=== PATIENT | female | born 1965 | race African-American/Black ===

== ENCOUNTER 2021-06-07 23:21 | Emergency (ER) | payer MEDICAID, SELFPAY ==
[2021-06-07 23:22] VITALS: BP 109/92; PULSE 85; RESP 18; TEMP 36.1; O2SAT 95; BMI 29.5
--- NOTE | 2021-06-07 23:29 | EDS_ITS ---
HPI HPI - Psych History of Present Illness Chief Complaint: Mental Health Informant: patient, EMS and SNF Narrative Narrative: 55-year-old female history of schizophrenia current residing at [facility] is brought to the emergency department tonight with several days history of violence towards nursing staff and peers. Reportedly they have been maxing out her as needed orders and have increased some. The patient was seen earlier tonight at another hospital and discharged. Arriving back at her nursing facility the patient reportedly became violent again. Patient does not know how she got a cut on her lip. [facility] Medical History (Updated 06/08/21 @ 01:[address] Genaro Peña DO) Schizoaffective disorder Home Medications atorvastatin 20 mg PO QHS 06/07/21 [History Last Taken Unknown] cholecalciferol (vitamin D3) [Vitamin D3] 100 mcg PO DAILY 06/07/21 [History Last Taken Unknown] clonazepam 0.5 mg PO Q6H 06/07/21 [History Last Taken Unknown] clonazepam [Klonopin] 0.5 mg PO BID 06/07/21 [History Last Taken Unknown] haloperidol 5 mg PO TID 06/07/21 [History Last Taken Unknown] loratadine [Claritin] 10 mg PO DAILY 06/07/21 [History Last Taken Unknown] lorazepam [Ativan] 2 mg IV Q6H PRN PRN 06/07/21 [History Last Taken Unknown] lorazepam [Ativan] 2 mg PO Q6H PRN PRN 06/07/21 [History Last Taken Unknown] risperidone [Risperdal] 3 mg PO BID 06/07/21 [History Last Taken Unknown] sertraline 50 mg PO DAILY 06/07/21 [History Last Taken Unknown] valproic acid (as sodium salt) 250 mg PO DAILY 06/07/21 [History Last Taken Unknown] valproic acid (as sodium salt) 375 mg PO BID 06/07/21 [History Last Taken Unknown] Allergy/AdvReac Type Severity Reaction Status Date / Time Fish Containing Products Allergy PT UNABLE Verified 06/07/21 23:50 TO RESPOND-NEEDS F/U tuberculin, purified protein Allergy PT UNABLE Verified 06/07/21 23:50 deriva TO RESPOND-NEEDS F/U Social History Smoking Status: Never smoker ROS ROS ED Review of Systems ROS Unobtainable: due to mental condition EXAM Physical Exam Const Vital Signs: 06/07/21 23:22 Temperature 97 F L Temperature Source Temporal Pulse Rate 85 Respiratory Rate 18 Blood Pressure 109/92 H Blood Pressure Mean 97 Pulse Ox 95 Oxygen Delivery Method Room Air Positive well nourished and well developed General Appearance ED: well developed HEENT Reports normocephalic, head/scalp atraumatic, TM's clear and moist mucous membranes HEENT Narrative: Left lower lip demonstrates a superficial abrasion and associated mild swelling. There is no obvious dental trauma. Tympanic Membrane ED: Yes TM's clear Eyes PERRL and EOMs intact bilaterally Neck no lymphadenopathy, supple and no JVD Resp normal respiratory effort and clear to auscultation bilaterally Cardio regular rate, regular rhythm and no murmurs GI normal to inspection, nondistended, normoactive bowel sounds and non-tender Palpation: soft Back/Spine no CVA tenderness and normal ROM Extremity normal to inspection General Extremety ED: Negative for edema General Extremity: Negative for edema Neuro oriented x3 and CN's II-XII intact bilaterally Sensorium / Orientation: alert Motor Exam: strength 5/5 throughout Psych mental status grossly normal Mood & Affect: Negative for depressed or tearful Memory / Cognition: memory grossly impaired Insight: poor Judgement: limited Skin no rashes or lesions noted and no wounds MDM MDM MDM Narrative Medical decision making narrative: Basic work-up was negative except for a noted 1+ bacteria and 5-10 white cells in the urine. Nitrate negative. Patient tells me she is asymptomatic. This will be sent for culture. Patient has been in the emergency department for over 3 hours. She has been cooperative with staff though requiring attention. Currently she is getting herself ready for bed would like to lay down and sleep for a few hours. I have seen no violence towards staff. Patient has been redirectable. She is forward thinking to a [employer] green party tomorrow. She is asked if she has been good since she has been here. I do not see a reason that I can pink slip her at this time. Her behavior that was reported I suspect is behavioral rather than schizophrenic. Lab Data Attestation: I reviewed the patient's lab results. Labs: Laboratory Results - last 24 hr 12/17/21 12/17/21 12/17/21 00:37 00:37 00:44 WBC 8.1 RBC 3.89 L Hgb 11.2 L Hct 35.4 L MCV 91.0 MCH 28.8 MCHC 31.6 L RDW Std Deviation 51.3 H RDW Coeff of Mary 15.3 H Plt Count 254 MPV 9.8 Immature Gran % (Auto) 0.500 Neut % (Auto) 46.3 L Lymph % (Auto) 40.8 [place] % (Auto) 11.0 H Eos % (Auto) 1.2 Baso % (Auto) 0.2 Absolute Neuts (auto) 3.8 Absolute Lymphs (auto) 3.31 Nucleated RBC % 0 Sodium Potassium Chloride Carbon Dioxide Anion Gap BUN Creatinine Estim Creat Clear Calc Est GFR (MDRD) Af Amer Est GFR (MDRD) Non-Af BUN/Creatinine Ratio Glucose Calcium Total Bilirubin AST ALT Alkaline Phosphatase Total Protein Albumin Globulin Albumin/Globulin Ratio Urine Color Yellow Urine Clarity Clear Urine pH 8.0 Ur Specific [place] 1.010 Urine Protein 15 H Urine Glucose (UA) Normal Urine Ketones Negative Urine Occult Blood Negative Urine Nitrite Negative Urine Bilirubin Negative Urine Urobilinogen Normal Ur Leukocyte Esterase 500 H Urine RBC 0 SEEN Urine WBC 5-10 SEEN Ur Squamous Epith Cells 0 SEEN Urine Bacteria 1+ Urine Mucus 0 SEEN Urine Opiates Screen NEGATIVE Urine Methadone Screen NEGATIVE Ur Barbiturates Screen NEGATIVE Ur Phencyclidine Scrn NEGATIVE Ur Amphetamines Screen NEGATIVE U Methamphetamin-MDMA NEGATIVE U Benzodiazepines Scrn NEGATIVE Urine Cocaine Screen NEGATIVE U Cannabinoids Screen NEGATIVE Ur Drug Screen Comment Ethyl Alcohol 06/08/21 06/08/21 00:44 00:44 WBC RBC Hgb Hct MCV MCH MCHC RDW Std Deviation RDW Coeff of Mary Plt Count MPV Immature Gran % (Auto) Neut % (Auto) Lymph % (Auto) [place] % (Auto) Eos % (Auto) Baso % (Auto) Absolute Neuts (auto) Absolute Lymphs (auto) Nucleated RBC % Sodium 142 Potassium 4.2 Chloride 109 H Carbon Dioxide 28.0 Anion Gap 5 BUN 28 H Creatinine 0.85 Estim Creat Clear Calc 61.13 Est GFR (MDRD) Af Amer 89 Est GFR (MDRD) Non-Af 73 BUN/Creatinine Ratio 32.9 H Glucose 116 H Calcium 9.5 Total Bilirubin 0.20 AST 17 ALT 23 Alkaline Phosphatase 106 Total Protein 7.4 Albumin 3.2 Globulin 4.2 Albumin/Globulin Ratio 0.8 L Urine Color Urine Clarity Urine pH Ur Specific [place] Urine Protein Urine Glucose (UA) Urine Ketones Urine Occult Blood Urine Nitrite Urine Bilirubin Urine Urobilinogen Ur Leukocyte Esterase Urine RBC Urine WBC Ur Squamous Epith Cells Urine Bacteria Urine Mucus Urine Opiates Screen Urine Methadone Screen Ur Barbiturates Screen Ur Phencyclidine Scrn Ur Amphetamines Screen U Methamphetamin-MDMA U Benzodiazepines Scrn Urine Cocaine Screen U Cannabinoids Screen Ur Drug Screen Comment Ethyl Alcohol 12.0 Discharge Plan Triage Chief Complaint: Mental Health ED Provider: Genaro Peña Dx/Rx/DC Orders Clinical Impression: Schizophrenia, Intellectual disability Instructions: ED Schizophrenia, General Prescriptions: No Action atorvastatin 20 mg Tablet 20 mg PO QHS RF: 0 haloperidol 5 mg Tablet 5 mg PO TID RF: 0 lorazepam [Ativan] 2 mg/mL Solution 2 mg IV Q6H PRN PRN (Reason: Agitation) RF: 0 clonazepam 0.5 mg Tablet 0.5 mg PO Q6H RF: 0 clonazepam [Klonopin] 0.5 mg Tablet 0.5 mg PO BID RF: 0 risperidone [Risperdal] 3 mg Tablet 3 mg PO BID RF: 0 valproic acid (as sodium salt) 250 mg/5 mL Solution 250 mg PO DAILY RF: 0 lorazepam [Ativan] 2 mg Tablet 2 mg PO Q6H PRN PRN (Reason: Agitation) RF: 0 sertraline 50 mg Tablet 50 mg PO DAILY RF: 0 loratadine [Claritin] 10 mg Tablet 10 mg PO DAILY RF: 0 valproic acid (as sodium salt) 500 mg/10 mL (10 mL) Solution 375 mg PO BID RF: 0 Vitamin D3 100 mcg (4,000 unit) Capsule 100 mcg PO DAILY RF: 0 Primary Care Provider: Ezekiel Villarreal Referrals: Ezekiel Villarreal MD [Primary Care Provider] - As soon as possible Disposition Disposition: Home, Self Care
[2021-06-08 00:45] LABS: Mucous, Urine 0 SEEN /hpf (<or=2+); Red Blood Cells-Urine 0 SEEN /hpf (0-5); Squamous Epithelial Cells - UA 0 SEEN /hpf (5-10)
[2021-06-08 00:55] LABS: Absolute Lymphocyte Count 3.31 X10^3/uL (0.83-4.51); Absolute Neutrophil Count 3.8 X10^3/uL (2.0-7.7); Basophil# 0.02 X10^3/uL; Basophil% 0.2 % (0-1); Eosinophils% 1.2 % (0-5); Hematocrit 35.4 % (37-47); Hemoglobin 11.2 g/dL (12.0-15.0); Lymphocyte # 3.31 X10^3/ul (0.83-4.51); Lymphocyte % 40.8 % (19-41); Mean Corp Hgb Conc 31.6 g/dL (32-36); Mean Corpuscular Hgb 28.8 pg (27.0-32.0); Mean Platelet Vol. 9.8 fl (6.2-12.0); Monocyte# 0.89 X10^3/uL; NRBC Flagged by Analyzer 0 % (0-5); Neutrophil # 3.76 X10^3/uL (2.7-7.7); Neutrophil % 46.3 % (47-70); Platelet Count 254 K/mm3 (150-450); RBC Distribution Width CV 15.3 % (11.6-14.6); RBC Distribution Width SD 51.3 fl (35.1-43.9); Red Blood Count 3.89 M/mm3 (4.2-5.4); White Blood Count 8.1 K/mm3 (4.4-11.0)
[2021-06-08 00:55] LABS: Color, Urine Yellow (Yellow); Glucose, Dipstick Normal (Normal); Ketone-Dipstick Negative (Negative); Leukocyte Esterase-Dipstick 500 /ul (Negative); Nitrite-Dipstick Negative (Negative); Occult Blood-Urine Negative /ul (Negative); Protein-Dipstick 15 mg/dl (Negative); Urine Bilirubin Dipstick Negative (Negative); Urine Clarity Clear (Clear); Urine Urobilinogen Normal (Normal)
[2021-06-08 01:14] LABS: Bacteria 1+ /hpf (None Seen); White Blood Cells 5-10 SEEN /hpf (0-5)
[2021-06-08 01:22] LABS: Amphetamine Urine VISTA NEGATIVE (<1000 ng/mL); Barbiturate Urine VISTA NEGATIVE (< 200 ng/mL); Benzodiazepine Urine VISTA NEGATIVE (< 200 ng/mL); Cocaine Urine VISTA NEGATIVE (< 300 ng/mL); Ecstacy Urine VISTA NEGATIVE (< 500 ng/mL); Methadone Urine VISTA NEGATIVE (< 300 ng/mL); PCP Urine VISTA NEGATIVE (< 25 ng/mL); THC Urine VISTA NEGATIVE (< 50 ng/mL); Vista UDS pH Range 8
[2021-06-08 01:23] LABS: ALB/GLOB Ratio 0.8 RATIO (0.9-2.4); AST(SGOT) 17 U/L (15-37); Alanine Aminotransfer ALT/SGPT 23 U/L (13-56); Albumin, Serum 3.2 g/dL (3.2-5.0); Alkaline Phosphatase 106 U/L (45-117); Anion Gap 5 (5-15); BUN 28 mg/dL (7-18); BUN/Creat Ratio 32.9 RATIO (10-20); Calcium,Total 9.5 mg/dL (8.5-10.1); Chloride 109 mmol/L (98-107); Creatinine, Serum 0.85 mg/dL (0.55-1.02); EST Glomerular Filtration Rate 73 mL/min (>60); Est Glom Filt Rate - Afr Amer 89 mL/min (>60); Estimated Creatinine Clearance 61.13 ml/min; Globulin 4.2 g/dL (2.2-4.2); Glucose 116 mg/dL (74-106); Potassium 4.2 mmol/L (3.5-5.1); Protein, Total 7.4 g/dL (6.4-8.2); Sodium Level 142 mmol/L (136-145)
== END 2021-06-08 03:31 | disposition home or self-care (01) ==
PROVIDERS: Emergency Provider Emergency Medicine; PCP Family Medicine
DX: R45.6 Violent behavior (principal); F25.9 Schizoaffective disorder, unspecified; F79 Unspecified intellectual disabilities; Z79.899 Other long term (current) drug therapy
CPT/HCPCS: 36415; 80053; 80307; 81001; 82077; 85025; 87086; 87088; 99284

== ENCOUNTER 2021-06-09 07:14 | Emergency (ER) | payer MEDICAID, SELFPAY ==
[2021-06-09 07:16] VITALS: BP 132/80; PULSE 73; RESP 18; TEMP 36.2; O2SAT 97; BMI 28.5
--- NOTE | 2021-06-09 07:26 | CT_ITS ---
STUDY: CT BRAIN WITHOUT CONTRAST REASON FOR EXAM: Female, 55 years old. Infusion RADIATION DOSAGE (If Supplied By Facility): CTDIvol = ( 44.99 ) mGy, DLP = ( 812.98 ) mGycm TECHNIQUE: Transaxial CT imaging of the brain was performed without administration of intravenous contrast material. Individualized dose optimization techniques were used for this CT. COMPARISON: None. FINDINGS: There is no acute bleed or infarct. There are chronic ischemic and atrophic changes. The ventricles are normal in configuration. There is no hydrocephalus. The visualized paranasal sinuses are clear. The mastoid air cells are well aerated. There is no skull fracture. CT/Brain/Head without Contrast IMPRESSION: No acute intracranial abnormality. Chronic ischemic and atrophic changes. Electronically Signed: Suleman Oates MD at 9:57 EST Tel , Service support ,
--- NOTE | 2021-06-09 07:53 | EX.ED.VIS.PS ---
HPI HPI - Psych History of Present Illness Chief Complaint: Mental Health Narrative Narrative: Patient presenting for mental health evaluation. Patient lives in a long-term, does have an underlying history of developmental delay as well as schizophrenia is on multiple medications. Per reports of long-term, the patient has been having increasing issues with becoming violent and combative with staff. Throwing chairs, hitting people, and biting. Patient apparently has been in and out of [facility] emergency department a couple of times for this recently. They are seeking potential geriatric psychiatry evaluation. Review of systems is limited secondary to the patient's developmental delay [facility] Medical History Anxiety Depression Paranoid schizophrenia Schizoaffective disorder Home Medications atorvastatin 20 mg PO QHS 06/07/21 [History Last Taken Unknown] cholecalciferol (vitamin D3) [Vitamin D3] 100 mcg PO DAILY 06/07/21 [History Last Taken Unknown] clonazepam 0.5 mg PO Q6H 06/07/21 [History Last Taken Unknown] clonazepam [Klonopin] 0.5 mg PO BID 06/07/21 [History Last Taken Unknown] haloperidol 5 mg PO TID 06/07/21 [History Last Taken Unknown] loratadine [Claritin] 10 mg PO DAILY 06/07/21 [History Last Taken Unknown] lorazepam [Ativan] 2 mg IM Q6H PRN PRN 06/07/21 [History Last Taken Unknown] lorazepam [Ativan] 2 mg PO Q6H PRN PRN 06/07/21 [History Last Taken Unknown] risperidone [Risperdal] 3 mg PO BID 06/07/21 [History Last Taken Unknown] sertraline 50 mg PO DAILY 06/07/21 [History Last Taken Unknown] valproic acid (as sodium salt) 250 mg PO DAILY 06/07/21 [History Last Taken Unknown] valproic acid (as sodium salt) 375 mg PO BID 06/07/21 [History Last Taken Unknown] benztropine 0.5 mg PO BID 06/09/21 [History Last Taken Unknown] lorazepam [Ativan] 2 mg IV Q10M PRN 06/09/21 [History Last Taken Unknown] Allergy/AdvReac Type Severity Reaction Status Date / Time Fish Containing Products Allergy PT UNABLE Verified 06/09/21 07:17 TO RESPOND-NEEDS F/U tuberculin, purified protein Allergy PT UNABLE Verified 06/09/21 07:17 deriva TO RESPOND-NEEDS F/U Social History Smoking Status: Never smoker ROS ROS ED Review of Systems ROS Unobtainable: due to mental condition EXAM Physical Exam Const Vital Signs: 06/09/21 07:16 06/09/21 09:18 06/09/21 15:00 Temperature 97.2 F L Temperature Source Temporal Pulse Rate 73 Respiratory Rate 18 16 16 Blood Pressure 132/80 H Blood Pressure Mean 97 Pulse Ox 97 Oxygen Delivery Method Room Air Positive well nourished and well developed General Appearance ED: well developed and NAD HEENT normocephalic and atraumatic Eyes PERRL and EOMs intact bilaterally Neck supple Resp normal respiratory effort and clear to auscultation bilaterally Cardio no murmurs Cardio Narrative: 2+ radial pulses bilaterally symmetric Rate: regular rate Rhythm: regular rhythm GI non-tender Palpation: soft Extremity normal to inspection Neuro Neuro Narrative: Patient at her neurologic baseline, is cooperative and reasonably directable. Sensorium / Orientation: alert Psych mental status grossly normal Skin General Skin Exam: Negative for jaundice Lesions: no lesions Rashes: no rashes MDM MDM MDM Narrative Medical decision making narrative: Patient presented for mental health evaluation. Screening labs were obtained and were found to be grossly unremarkable. Patient while in the emergency department was given as needed medications. Patient was evaluated by social work as well as crisis, patient has an underlying history of intellectual disability. It is felt that the patient does not meet criteria for psychiatric admission as she is not psychotic hallucinating suicidal homicidal or otherwise in this problem is mainly behavioral. After evaluation by social work and crisis, it is felt that the patient does not meet any sort of admission criteria for psychiatric stabilization. Multiple phone calls were made to the patient's facility as well as the board of [facility] as that is where the patient is from. Decision ultimately is that the patient will be discharged back to the long-term and this will be managed as an outpatient. Patient was discharged in improved condition. Lab Data Labs: Laboratory Results - last 24 hr 06/09/21 06/09/21 06/09/21 07:30 08:00 08:00 WBC 6.6 RBC 3.86 L Hgb 11.3 L Hct 35.0 L MCV 90.7 MCH 29.3 MCHC 32.3 RDW Std Deviation 51.4 H RDW Coeff of Mary 15.6 H Plt Count 242 MPV 9.9 Immature Gran % (Auto) 0.800 Neut % (Auto) 47.7 Lymph % (Auto) 38.5 [place] % (Auto) 11.0 H Eos % (Auto) 1.5 Baso % (Auto) 0.5 Absolute Neuts (auto) 3.1 Absolute Lymphs (auto) 2.53 Nucleated RBC % 0 Sodium 141 Potassium 4.1 Chloride 107 Carbon Dioxide 27.0 Anion Gap 7 BUN 20 H Creatinine 0.88 Estim Creat Clear Calc 61.64 Est GFR (MDRD) Af Amer 86 Est GFR (MDRD) Non-Af 71 BUN/Creatinine Ratio 22.9 H Glucose 72 L Calcium 9.2 Total Bilirubin 0.30 AST 18 ALT 26 Alkaline Phosphatase 98 Ammonia Total Protein 7.5 Albumin 3.3 Globulin 4.2 Albumin/Globulin Ratio 0.8 L TSH 2.09 Urine Opiates Screen NEGATIVE Urine Methadone Screen NEGATIVE Ur Barbiturates Screen NEGATIVE Valproic Acid Ur Phencyclidine Scrn NEGATIVE Ur Amphetamines Screen NEGATIVE U Methamphetamin-MDMA NEGATIVE U Benzodiazepines Scrn NEGATIVE Urine Cocaine Screen NEGATIVE U Cannabinoids Screen NEGATIVE Ur Drug Screen Comment Ethyl Alcohol 06/09/21 06/09/21 08:00 08:00 WBC RBC Hgb Hct MCV MCH MCHC RDW Std Deviation RDW Coeff of Mary Plt Count MPV Immature Gran % (Auto) Neut % (Auto) Lymph % (Auto) [place] % (Auto) Eos % (Auto) Baso % (Auto) Absolute Neuts (auto) Absolute Lymphs (auto) Nucleated RBC % Sodium Potassium Chloride Carbon Dioxide Anion Gap BUN Creatinine Estim Creat Clear Calc Est GFR (MDRD) Af Amer Est GFR (MDRD) Non-Af BUN/Creatinine Ratio Glucose Calcium Total Bilirubin AST ALT Alkaline Phosphatase Ammonia 20.0 Total Protein Albumin Globulin Albumin/Globulin Ratio TSH Urine Opiates Screen Urine Methadone Screen Ur Barbiturates Screen Valproic Acid 72 Ur Phencyclidine Scrn Ur Amphetamines Screen U Methamphetamin-MDMA U Benzodiazepines Scrn Urine Cocaine Screen U Cannabinoids Screen Ur Drug Screen Comment Ethyl Alcohol < 3.0 Radiography Diagnostic Testing: Clinical Impression(s) from Imaging Studies Brain CT 06/09/21 07:26 IMPRESSION: No acute intracranial abnormality. Chronic ischemic and atrophic changes. Electronically Signed: Suleman Oates MD at 9:57 EST Tel , Service support , Discharge Plan Triage Chief Complaint: Mental Health ED Provider: Juanjo Cannon Dx/Rx/DC Orders Clinical Impression: Intellectual disability Instructions: ED No Diagnosis Prescriptions: No Action atorvastatin 20 mg Tablet 20 mg PO QHS RF: 0 haloperidol 5 mg Tablet 5 mg PO TID RF: 0 lorazepam [Ativan] 2 mg/mL Solution 2 mg IM Q6H PRN PRN (Reason: Agitation) RF: 0 clonazepam 0.5 mg Tablet 0.5 mg PO Q6H RF: 0 clonazepam [Klonopin] 0.5 mg Tablet 0.5 mg PO BID RF: 0 risperidone [Risperdal] 3 mg Tablet 3 mg PO BID RF: 0 valproic acid (as sodium salt) 250 mg/5 mL Solution 250 mg PO DAILY RF: 0 lorazepam [Ativan] 2 mg Tablet 2 mg PO Q6H PRN PRN (Reason: Agitation) RF: 0 sertraline 50 mg Tablet 50 mg PO DAILY RF: 0 loratadine [Claritin] 10 mg Tablet 10 mg PO DAILY RF: 0 valproic acid (as sodium salt) 500 mg/10 mL (10 mL) Solution 375 mg PO BID RF: 0 Vitamin D3 100 mcg (4,000 unit) Capsule 100 mcg PO DAILY RF: 0 benztropine 0.5 mg Tablet 0.5 mg PO BID RF: 0 lorazepam [Ativan] 2 mg/mL Solution 2 mg IV Q10M PRN RF: 0 Primary Care Provider: Ezekiel Villarreal Referrals: Ezekiel Villarreal MD [Primary Care Provider] - Activity Restrictions/Additional Instructions: Followup with the Disability board next week. Disposition Disposition: Home, Self Care
[2021-06-09 08:06] LABS: Amphetamine Urine VISTA NEGATIVE (<1000 ng/mL); Barbiturate Urine VISTA NEGATIVE (< 200 ng/mL); Benzodiazepine Urine VISTA NEGATIVE (< 200 ng/mL); Cocaine Urine VISTA NEGATIVE (< 300 ng/mL); Ecstacy Urine VISTA NEGATIVE (< 500 ng/mL); Methadone Urine VISTA NEGATIVE (< 300 ng/mL); PCP Urine VISTA NEGATIVE (< 25 ng/mL); THC Urine VISTA NEGATIVE (< 50 ng/mL); Vista UDS pH Range 6
[2021-06-09] MEDS: Haloperidol Lactate 5 MG/ML Vial IM ×2 (08:19→12:54)
[2021-06-09 08:22] LABS: Absolute Lymphocyte Count 2.53 X10^3/uL (0.83-4.51); Absolute Neutrophil Count 3.1 X10^3/uL (2.0-7.7); Basophil# 0.03 X10^3/uL; Basophil% 0.5 % (0-1); Eosinophils% 1.5 % (0-5); Hemoglobin 11.3 g/dL (12.0-15.0); Lymphocyte # 2.53 X10^3/ul (0.83-4.51); Lymphocyte % 38.5 % (19-41); Mean Corp Hgb Conc 32.3 g/dL (32-36); Mean Corpuscular Hgb 29.3 pg (27.0-32.0); Mean Corpuscular Volume 90.7 fL (81-99); Mean Platelet Vol. 9.9 fl (6.2-12.0); Monocyte# 0.72 X10^3/uL; NRBC Flagged by Analyzer 0 % (0-5); Neutrophil # 3.14 X10^3/uL (2.7-7.7); Neutrophil % 47.7 % (47-70); Platelet Count 242 K/mm3 (150-450); RBC Distribution Width CV 15.6 % (11.6-14.6); RBC Distribution Width SD 51.4 fl (35.1-43.9); Red Blood Count 3.86 M/mm3 (4.2-5.4); White Blood Count 6.6 K/mm3 (4.4-11.0)
[2021-06-09 08:50] LABS: ALB/GLOB Ratio 0.8 RATIO (0.9-2.4); AST(SGOT) 18 U/L (15-37); Alanine Aminotransfer ALT/SGPT 26 U/L (13-56); Albumin, Serum 3.3 g/dL (3.2-5.0); Alkaline Phosphatase 98 U/L (45-117); Anion Gap 7 (5-15); BUN 20 mg/dL (7-18); BUN/Creat Ratio 22.9 RATIO (10-20); Calcium,Total 9.2 mg/dL (8.5-10.1); Chloride 107 mmol/L (98-107); Creatinine, Serum 0.88 mg/dL (0.55-1.02); EST Glomerular Filtration Rate 71 mL/min (>60); Est Glom Filt Rate - Afr Amer 86 mL/min (>60); Estimated Creatinine Clearance 61.64 ml/min; Globulin 4.2 g/dL (2.2-4.2); Glucose 72 mg/dL (74-106); Potassium 4.1 mmol/L (3.5-5.1); Protein, Total 7.5 g/dL (6.4-8.2); Sodium Level 141 mmol/L (136-145); Thyroid Stim Hormone (TSH) 2.09 uIU/mL (0.358-3.74)
[2021-06-09 08:52] LABS: Alcohol, Blood (Medical)-Serum < 3.0 mg/dL; Valproic Acid (Depakene) Level 72 ug/mL (50-100)
[2021-06-09] MEDS: LORazepam 2 MG/ML Syringe IM (08:58)
--- NOTE | 2021-06-09 09:05 | ED.RN ---
[facility] CALLED AND CHECKED ON STATUS OF THE PT. EXPLAINED PT IS BEHAVING NORMAL FOR HER DX AND WE ARE WAITING FOR MEDS TO KICK IN SO WE CAN GET A CT
--- NOTE | 2021-06-09 09:12 | ED.RN ---
PT THREW BOTH OF BREAKFAST TRAYS. WAS MEDICATED ORDERED AND PT DIFFICULT TO KEEP CONTAINED TO HER ROOM. PT IS CURRENTLY SITTING WITH THE ASSOCIATE FACULTY
[2021-06-09 09:18] VITALS: RESP 16
--- NOTE | 2021-06-09 09:24 | ED.RN ---
THIS RN TOOK A PHONE CALL FROM [facility]IGUEL MARTINES, FORM GRADER PHONE NUMBER IS . REPORTS CONCERN THAT PT NEEDS TO BE EVALUATED BY [facility]. MIGUEL GIVES CONSENT FOR PT TO BE TREATED. REQUESTS A CALL BACK WHEN PT PLAN OF CARE UPDATES.
--- NOTE | 2021-06-09 10:33 | ED.RN ---
CRISIS AWARE PT NEEDS TO BE SEEN
--- NOTE | 2021-06-09 13:10 | ED.RN ---
l;eft a message to hae crisis call back and let us know what the plan is. waiting for them to call back
--- NOTE | 2021-06-09 13:57 | ED.RN ---
TALKED WITH MARS FROM CRISIS, THEY FEEL PT DOES NOT NEED PLACED. WHEN THEY CALLED [facility] MARS WAS TOLD THEY COULD NOT TAKE KITTY BACK. STATED PT WAS UNABLE TO BE CONTROLLED AND OTHER CLIENTS WERE UNABLE TO BE SAFE WITH PT BEHAVIOR. CRISIS AND ER DR ALL IN AGREEMENT THAT PT DOES NOT MEET CRITERIA TO BE PLACED SOMEWHERE. PT IS EXHIBITING BEHAVIORAL OUTBURST. PT IS MEDICALLY CLEARED. MARS PROVIDED THIS NURSE WITH THE NUMBER TO THE ADMINISTRATION ,MARK, PATIENT MONITOR FOR [facility]. THIS NURSE CALLED MARK AND SPOKE WITH HER REGARDING PT. EXPLAINED TO MARK THAT THE PHYSICIAN DOES NOT FEEL PT MEETS CRITERIA TO BE PLACED IN A PSYCHIATRIC FACILITY. MARK STATED THEY WOULD NOT TAKE PT BACK BECAUSE THE OTHER STAFF AND RESIDENTS ARE NOT ABLE TO BE KEPT SAFE. ENCOURAGED MARK TO USE THE RESOURCE OF THE BO[employer] OF [facility] AND SUCH TO GET ASSISTANCE WITH THIS SITUATION. EXPLAINED THAT WE WOULD NOT ABLE TO KEEP THE PT OR PLACE THE PT BECAUSE OF BEHAVIORAL ISSUES THAT ARE OCCURRING THERE. THESE BEHAVIORS ARE COMMON WITH INDIVIDUALS WITH THESE DIAGNOSIS. ALSO EXPLAINED THE ER IS NOT PLACE TO CHANGE MEDICATION REGIMENTS. MARK CONTINUED TO STATE THAT THEY WERE NOT TAKING PT BACK. THIS NURSE TALKED WITH THE ER PHYSICIAN AGAIN AND VERIFIED THAT HE IS NOT ORDERING THE PT TO BE PLACED ANYWHERE. STATES PT HAS BEHAVIORAL ISSUES THAT CAN BE DIFFICULT BUT THAT THEY DON'T MEET CRITERIA TO BE PLACED. TALKED WITH MARS AGAIN AND RELAYED THIS AGAIN. MARS AGREED AND STATED SHE TALKED TO THE PATIENT MONITORTELECOMMUNICATION LINES REPAIRER, JOSHUA, FOR [facility]. JOSHUA STATED THEY WERE UNABLE TO DO ANYTHING TODAY BUT WAS ALSO UNABLE TO COMMIT TO SOMETHING BEING DONE ON FRIDAY PER MARS. THIS NURSE TALKED WITH THE [facility] AND DISCUSSED THIS SITUATION ALSO. ALL PARTIES ARE IN AGREEMENT THAT THE PT WILL RETURNING TO THE FACILITY SO THEY CAN CONTINUE TO LOOK INTO POSSIBLE RESOLUTIONS FROM THERE. MARS THEN CALLED BACK AND STATED MEENA LANGLEY BOARD OF [employer] WAS ABLE TO GET HER THE NUMBER FOR [facility]. MARS PLACED A CALL TO THEM AND LEFT A MESSAGE. SHE IS AWAITING A CALL BACK. WAITING TO CALL [facility] UNTIL MARS HEARS BACK FROM [facility]
[2021-06-09] MEDS: Ziprasidone IM 20 MG/ML VIAL IM (14:13)
[2021-06-09 15:00] VITALS: RESP 16
--- NOTE | 2021-06-09 15:15 | ED.RN ---
TALKED WITH MARS FROM [facility]. SHE STATED SHE TALKED TO A ASIA FROM [facility] BOARD OF AND IS WAITING TO HEAR FROM THEM ON A PLAN. MARS WILL THEN LET US KNOW SO WE CAN CONTINUE FROM THERE.
--- NOTE | 2021-06-09 15:25 | ED.RN ---
MARS FROM [facility] SPOKE WITH ASIA FROM [facility] [place] AND ASIA STATED THEY ARE UNABLE TO DO ANYTHING THIS WEEKEND. ASIA ALSO TOLD MARS THAT IF THE FACILITY WAS REFUSING TO TAKE THE PT THEY NEEDED TO HAVE ANOTHER FACILITY FOR THE PT TO GO TO. ASIA IS GOING TO CALL [facility] AND EXPLAIN THIS PER MARS. THIS NURSE STATED I WOULD GIVE THE FACILITY A FEW MINUTES BEFORE CALLING AND DISCUSSING SENDING THE PT BACK
--- NOTE | 2021-06-09 15:48 | ED.RN ---
CALLED AND TALKED WITH ASIA FROM [facility]. SHE STATES THE DIRECTOR OF THE FACILITY IS STATING THEY WILL NOT TAKE THE PT BACK AND THAT THEY CAN DO A IMMEDIATE DISCHARGE BECAUSE SHE IS IN A ACUTE CRISIS. EXPLAINED THE PT IS MEDICALLY CLEARED AND NOT IN A ACUTE SITUATION AND THAT THE BOARDS OF DD DO NOT FEEL ANYTHING NEEDS DONE OVER THE WEEKEND. THEY ARE REFUSING TO TAKE HER AND HAVING THE DIRECTOR OF THE COMPANY CALL TO DISCUSS THIS. MURIEL KENYON AND DR ZHANG WERE PRESENT FOR THE CONVERSATION
--- NOTE | 2021-06-09 17:48 | CM.ED ---
KOSTAS has been updated by TAMMI Gordon about patient and that patient will NOT be pink slipped by MD or Crisis. KOSTAS took call from zoning administrator, Ginna ([phone]). Ginna said that patient has been seen in ED 4x in 72 hours. She reports that patient has been with them awhile and that there is a change in baseline. Ginna stated that MD tried to adjust patient's medication but it has not worked and they do not chemically restrain patients. Ginna said that the guardian wanted her evaluated. Ginna said that they have no intention of discharging patient and stated that in her 14 years as an zoning administrator she has only done emergency removal 1x. Ginna said patient was from [facility] but was unsure if it was the acute or psych unit. Ginna said that [facility] refused patient and stated they have been trying to work on alternate placement. Ginna said that patient got sent to [facility] yesterday but was there for 1 hour as the hospital was full. Ginna said [facility] has denied patient. Ginna said that this is a new behavior for patient. Ginna said that her aids social worker, Ginna Kiser will call this typewriter operator automatic as she is waiting to speak to cable supervisor at [employer] [facility] . SW spoke to Celestina Kiser. Celestina said that patient now has a SSA from [facility] and patient had interview with an [facility] on Friday and got accepted but due to her behavior is not able to be placed in a senior living. Celestina said that patient has been to [facility] since April. Celestina said that the police were called yesterday and patient was taken to [facility] but was sent home as she was joking with staff and invited staff and police to [facility]. Celestina also stated that they have made numerous reports to the state regarding patient's behavior. Celestina said she referred patient to [facility] but declined due to insurance and also [facility] but declined due to insurance. Celestina said that [facility] had beds yesterday but not today. KOSTAS advised that patient can not stay in the hospital and has been medically cleared. KOSTAS advised MD and Crisis will not pink slip patient thus patient needs to return. KOSTAS advised that if patient is disruptive they need to call police and pink slip her to [facility] and let them evaluate her. Celestina said that their MD will do order for psych placement but they need medical clearance and requested records be sent back with patient. Due to patient's provider, SNF, needing the records to provide continuity of care for best care of the patient, the records will be sent back with patient. Celestina said that she had advised staff that if patient comes back and becomes disruptive to call the police. Celestina said that at times patient''s behavior is beautiful. SW advised patient will return to SNF. Patient asked Janel to schedule transport. Janel scheduled transport and notified facility. Plan: Return to [facility] Noris CAMPBELL
[2021-06-09 17:54] VITALS: BP 134/77; PULSE 82; RESP 15; O2SAT 97
--- NOTE | 2021-06-09 18:22 | CM.ED ---
SW Note KOSTAS updated Lorena from Crisis. She said that patient has been at [facility] since April 30. Lorena said that [facility] DD stated that SNF needs to locate another SNF for patient or if she goes back and acts out to call the police. Michelle CAMPBELL
== END 2021-06-09 18:59 | disposition home or self-care (01) ==
PROVIDERS: Emergency Provider Emergency Medicine; PCP Family Medicine
DX: F79 Unspecified intellectual disabilities (principal); F32.A Depression, unspecified; F25.9 Schizoaffective disorder, unspecified; Z79.899 Other long term (current) drug therapy
CPT/HCPCS: 36415; 70450; 80053; 80164; 80307; 82077; 82140; 84443; 85025; 96372; 99285; J3486